=== PATIENT | female | born 1985 | race Caucasian/White ===

== ENCOUNTER 2022-11-20 14:57 | Emergency (ER) | payer SELFPAY ==
[~2022-11-20] VITALS: Ht 157.5 cm; Wt 70.3 kg
--- NOTE | 2022-11-20 14:57 | NUR ---
1452 PT BIBA/ALS TO BED 4
[2022-11-20] MEDS ORDERED: FAMOTIDINE 20 MG/2 ML VIAL IVP ONE (15:00)
[2022-11-20] MEDS ORDERED: EPINEPHrine 1 MG/ML AMP IM ONE (15:00)
[2022-11-20] MEDS ORDERED: diphenhydrAMINE 50 MG/ML VIAL IVP ONE (15:00)
[2022-11-20] MEDS ORDERED: methylPREDNISolone SS 125 MG/2 ML VIAL IVP ONE (15:00)
[2022-11-20 15:02] VITALS: BP 124/58
[2022-11-20] MEDS ORDERED: EPINEPHrine 1 MG/ML AMP ONE (15:03)
[2022-11-20] MEDS ORDERED: diphenhydrAMINE 50 MG/ML VIAL ONE (15:04)
[2022-11-20] MEDS ORDERED: ALBUTEROL 0.083% 2.5 MG/3 ML NEBU INH ONE (15:05)
[2022-11-20 15:14] LABS: BASOPHILS % (AUTO) 0.3 % (0.0-2.0); EOSINOPHILS % (AUTO) 0.1 % (0.0-4.0); HEMATOCRIT 27.4 % (36-48); LYMPHOCYTES # (AUTO) 5.9 K/uL (2.5-16.5); LYMPHOCYTES % (AUTO) 48.5 % (20.5-51.1); MEAN CORPUSCULAR HEMOGLOBIN 16 pg (27-31); MEAN CORPUSCULAR HGB CONC 29 g/dL (33-37); MEAN CORPUSCULAR VOLUME 53.9 fL (80-94); MONOCYTES # (AUTO) 0.9 K/uL (0.8-1.0); MONOCYTES % (AUTO) 7.8 % (1.7-9.3); NEUTROPHILS # (AUTO) 5.3 K/uL (1.8-7.7); NEUTROPHILS % (AUTO) 43.3 % (42.2-75.2); PLATELET COUNT (AUTO) 712 K/uL (140-450); RED BLOOD CELL COUNT(AUTO) 5.09 MIL/uL (4.20-5.40); RED CELL DISTRIBUTION WIDTH 22.8 % (11.6-13.7); WHITE BLOOD COUNT (AUTO) 12.2 K/uL (4.8-10.8)
[2022-11-20 15:35] LABS: ALBUMIN 3.8 g/dL (3.4-5.0); CARBON DIOXIDE 23.2 mmol/L (21-32); CREATININE 0.8 mg/dL (0.6-1.3); POTASSIUM 3.2 mmol/L (3.5-5.1); TOTAL BILIRUBIN 0.3 mg/dL (0.0-1.0)
--- NOTE | 2022-11-20 16:08 | NUR ---
PT STS FEELING BETTER , NO RESP DISTRESS, NO ABDO PAIN OR NAUSEA
[2022-11-20] MEDS ORDERED: NACL 0.9% 1,000 ML IV ONE (18:35)
--- NOTE | 2022-11-20 18:37 | NUR ---
CONT TO FEEL BETTER , BUT REMAIN TACHY , ADDITIONAL ORDER RECEIVED FR MD TO GIVE PT 1L IVF NS BOLUS
[2022-11-20] MEDS ORDERED: FERR-15 PO (20:08)
[2022-11-20] MEDS ORDERED: PRED20TA5 PO (20:08)
[2022-11-20] MEDS ORDERED: EPIN1KIT31 IM (20:08)
[2022-11-20 20:47] VITALS: BP 125/66
--- NOTE | 2022-11-20 20:48 | NUR ---
Patient discharged with v/s stable. Written and verbal after care instructions given and explained. Patient alert, oriented and verbalized understanding of instructions. Ambulatory with steady gait. All questions addressed prior to discharge. ID band removed. Patient advised to follow up with PMD. Rx of EPINEPHRINE (EPIPEN), FERROUS SULFATE, AND PREDNISONE given. Patient educated on indication of medication including possible reaction and side effects. Opportunity to ask questions provided and answered. DX: ANEMIA, ANAPHYLACTIC REACTION, ADULT
== END 2022-11-20 20:48 | disposition home or self-care (01) ==
LOC: MED 14:57
DX: T78.2XXA Anaphylactic shock, unspecified, initial encounter (principal); D50.9 Iron deficiency anemia, unspecified; R11.2 Nausea with vomiting, unspecified; Z20.822 Contact with and (suspected) exposure to COVID-19; Z88.0 Allergy status to penicillin; Z79.899 Other long term (current) drug therapy
CPT/HCPCS: 36415; 71045; 80053; 85025; 87426; 87804; 94640; 96361; 96372; 96374; 96375; 99285; J0171; J1200; J2930; J3490; J7030; J7613; Q0092

== ENCOUNTER 2023-06-23 18:12 | Emergency (ER) | payer MEDICAID ==
[~2023-06-23] VITALS: Ht 152.4 cm; Wt 83.9 kg
[~2023-06-23 18:12] MED LIST: EPIN1KIT31 IM; FERR-15 PO; PRED20TA5 PO
[2023-06-23 19:24] VITALS: BP 120/74; PULSE 82; RESP 20; TEMP 97.5; O2SAT 99
[2023-06-23 20:49] LABS: FLU A ANTIGEN negative (NEGATIVE); FLU B ANTIGEN negative (NEGATIVE)
[2023-06-23] MEDS ORDERED: ALBU0.0912 INH (20:50)
[2023-06-23] MEDS ORDERED: MUC600 PO (20:50)
[2023-06-23] MEDS ORDERED: PROM118S5 PO (20:50)
[2023-06-23 20:54] VITALS: O2SAT 99
== END 2023-06-23 21:00 | disposition home or self-care (01) ==
LOC: MED 18:12
DX: J06.9 Acute upper respiratory infection, unspecified (principal); B34.9 Viral infection, unspecified; Z20.822 Contact with and (suspected) exposure to COVID-19; Z79.899 Other long term (current) drug therapy; Z88.0 Allergy status to penicillin
CPT/HCPCS: 93005; 99284